=== PATIENT | male | born 1975 | race Caucasian/White ===

== ENCOUNTER 2022-12-14 15:37 | Outpatient (CLI) | payer OTHER, SELFPAY ==
--- NOTE | 2022-12-21 15:42 | CCCE_ITS ---
Comprehensive Care Clinic Note Note: [facility] [address] [place], [place]? [id number] Initial [facility] Visit Information New or Remote Dx of HIV (1-2 hours) Name: Sarabjit Mcarthur? Date of : 1975 ? Primary Care Provider: [facility] Date of Service: 12/14/2022 SUBJECTIVE CC: Referred from express care at [facility] where Sarabjit is establishing primary care HPI: Sarabjit was diagnosed with HIV I 2016 when he was admitted to the hospital with pancreatitis. He does not remember what his CD4 count was but he was told he did not have AIDS. He says he was HIV negative when he was hospitalized for syphilis in 2011. He started on Biktarvy soon after that but didn?t like it because h gained weight. He admits to eating a lot of junk food then and has changed his diet this year resulting in loosing weight. He says he went from w size 38 pant to size 35. His weight was over 200 and he now weighs about 175#. He moved last year from his home town in [place] to [place] where he has extended family. His PCP and ID provider in [place] was no longer able to RX for the Biktarvy he was taking since 2017. He has not had it since earlier this year. Nor has he had the RX for testosterone 200mg IM which he has been taking for a few years and feels his energy and overall sense of wellbeing has declined w/o it. ROS Constitutional: general lethargy started soon after stopped the testosterone replacement, Sleep is OK if he is in s reclined=r due to chronic back pain. Skin: NO current rash, he has a h/O Zoster on the face Head: Prone to sinus HAs and has one now. He went to the [facility] express care yesterday for a ?sinusitis?, was Covid and Flu negative and RX?d doxycycline. Eyes: No visual complaints and he does not wear any correction Ear/Nose/Throat: Sinus congestion, pressure pain x 1 week with some right ear pressure Mouth/Teeth: full upper denture and a partial on the lower Neck: Denies complaint CV: Negative Respiratory: Negative GI: Had GERD but it resolved with weight reduction. : No Symptoms, had GC many years ago and was [place] Musculoskeletal: general muscle weakness since stopped testosterone Endocrine: Low T since had Syphilis in 2011 Lymphatic: Has no noted any enlarged nodes Hematologic: Denies unusual bruising of bleeding Immunologic: Has environmental allergies for which he has had an RX for Flonase and an ?antihistamine inhaler?. Psychiatric: He states he is depressed about his HIV DX. Denies suicidal ideation now but has had some in the past. No HI. Allergies/Sensitivities: No medication allergies but states he gets GI symptoms from any PCN. He has environmental allergies. 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 when he presented to the ER and was admitted for 1 ? weeks in ICU, then 2 more weeks inpatient and had 2 months of IV antibiotics via pic line. - spinal stenosis (which he blames on a traumatic spinal tap when he was inpatient for syphilis Tx. Has chronic back pain. 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 This is when he had the first +HIV test. - Very remote past had GC which was treated but needed a urethral dilatation sometime after that due to scaring. Past Surgical History: urethral dilatation Past Psychiatric History: Has had long standing seasonal depression and states he has been depressed since HIV diagnosis. He did have some suicidal ideations soon after diagnosis and states he has guns. He denies suicidality now. Social History: [place] [facility] and needs a recliner so he can sleep better due to his chronic back pain. He does not have a sexual partner now and has never had a intermediate accountant relationship. Place of : [place]. [place] Gender: M Racial Distribution: C Primary Language: Romanian Secondary Language(s): None Current County, State of Residence: [place], [place] Marital Status: Single Family Size: 1 Pets: 2 Dogs Housing: Staying with a friend Incarceration History: None History: None Highest Grade Completed: 12th ? Able to read? 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 ? Income(s)/Means of Financial Support: Has some savings. Makes about $4000 when he is working ? 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 Other payment source: None ? Coverage Issues: None known Substance Abuse History: ? Tobacco: quit cigarettes long ago ? ETOH: 2 x a week 2 ? 4 twisted teas ? Illicit Drug Use: MJ rarely ? Rx Drug Dependence: None Other Psychosocial Considerations: Thinking of returning to [facility] where he was active on the [employer] department and had friends there. Family History ? Mother: 70 yo HTN, Hyperlipidemia, prediabetes, anxiety/depression ? Father: 72 yo DM, HTN, Prostat CA ? Siblings: 1 sister 7 years younger than him A&w, 1 brother 1 year older A&W ? Children: None ? Grand Parents: PGF T1 DM, MGF ETOH, M Uncle ETOH ? Extended: Immunization History ? Tetanus/TDAP: UTD ? Hepatitis A: states he had ? Hepatitis B: states he had ? Flu Vaccine: 2020 ? Pneumovax 23: states he had ? Prevnar 13: unknown ? Singrix: no ? Menactra: no ? other: Covid initial series and 1 booster Health Maintenance: Needs a PCP visit at [facility] to officially establish care Lipids/Glucose: Will order ID Screenings ? PPD/Quantiferron: PPD negative last year OBJECTIVE Height: 6?3?, Weight: 174, Temp: 99.2. Pulse: 62, Respirations: 14, Blood Pressure: 128/72 General: WDWNL Skin: W/D, clear Head: NCAT Eyes: PERRL 4mm w symmetry, Non-icteric, Non-injected, Disc flat, vessels appear normal Ears/Nose: Mild sinus pressure bilateral maxillary with bogginess, TMs rafa Mouth/Teeth: Dentures w/o lesion below Pharynx: clear, uvula midline Neck: Supple CV/Pulses: RRR, No MCRG, pulses 2/4 Chest Lungs: Clear in all lobes Abdomen: NABS, ND, NT, No OGM Extremities: No edema, clubbing, cyanosis Musculoskeletal: Normal muscle distribution Neuro: Gait strong and steady, no tremor, tics : NE Pelvic: NA Rectal: NE Lymphatic: No adenopathy Psychiatric: - appearance: Well dressed - eye contact: fair - attitude: cooperative - speech: clear, coherent - affect: flat - mood: depressed - memory: intact - self-perception: some deprecation - motor activity: normal - orientation: x4 - attention: intact - thought content: non delusional - perceptions: normal - insight: good ASSESSMENT/PLAN 1.? HIV non AIDS ? RX Biktarvy 50/200/25 mg tab, 1 daily po MD visit scheduled: To be scheduled at one of the next clinics with Dr. Antonio Release of Records: Signed Social Work/Psychiatry referral: Will coordinate with his PCP, Also will refer to [facility], the HIV/AIDS service organization in our area, as well a to the VMAP coordinator for supplemental help with Co pays, etc. to get HIV medications. Lab work ordered (if not done recently) - CBCD - CD4/8 Immunodeficiency Panel - Comprehensive Metabolic Profile with Lipids - HIV RNA PCR Quantitative Provider of Care:? Elinor Curtis, MSN, CLIENT SERVICES SPECIALIST
== END 2022-12-14 15:38 | disposition home or self-care (01) ==
LOC: CCC 12-21 15:39
PROVIDERS: PCP Nurse Practitioner Family; Visit Provider Nurse Practitioner Family
DX: B20 Human immunodeficiency virus [HIV] disease (principal)
CPT/HCPCS: 99204

== ENCOUNTER 2023-02-02 13:29 | Outpatient (CLI) | payer OTHER, SELFPAY ==
[2023-02-02 13:44] LABS: Abs Immature Grans 0.01 10^3/uL (0.0-0.06); Absolute Basophil Count 0.02 10^3/uL (0.0-0.2); Absolute Lymphocyte Count 1.93 10^3/uL (1.2-3.4); Absolute Monocyte Count 0.45 10^3/uL (0.1-0.8); Basophils % 0.5; Eosinophils % 2.4; HCT 40.5 % (40.0-50.0); HGB 13.1 g/dL (13.5-17.5); Immature Grans % 0.2; Lymphocytes % 46.8; MCH 28.5 pg (27.0-33.0); MCHC 32.3 % (32.0-36.0); MCV 88 fL (80-95); MPV 9.2 fL (8.0-11.0); Monocytes % 10.9; Neutrophils % 39.2; Platelet Count 197 10^3/uL (130-400); RDW 14.1 % (11.8-14.1); RDW-SD 45.5 fL; WBC 4.12 10^3/uL (4.4-10.8)
[2023-02-02 13:46] LABS: Absolute Neutrophil Count 1.62 10^3/uL (1.2-6.7)
[2023-02-02 15:52] LABS: Anion Gap 6.8 mmol/L (3-11); BUN 13 mg/dL (7-18); CO2 28.2 mmol/L (21.0-32.0); CREATININE 1.1 mg/dL (0.70-1.30); Calcium 9.2 mg/dL (8.5-10.1); Chloride 101 mmol/L (98-107); Estimated GFR 82.29 (mL/min/1.73m2); Glucose 101 mg/dL (74-106); Sodium 136 mmol/L (136-145)
== END 2023-02-02 13:30 | disposition home or self-care (01) ==
LOC: LBO 02-03 13:29
PROVIDERS: Visit Provider Nurse Practitioner Family
DX: U07.1 COVID-19 (principal)
CPT/HCPCS: 36415; 80048; 85025

== ENCOUNTER 2023-03-13 19:03 | Outpatient (CLI) | payer OTHER, SELFPAY ==
[2023-03-13 10:43] LABS: Abs Immature Grans 0.01 10^3/uL (0.0-0.06); Absolute Basophil Count 0.02 10^3/uL (0.0-0.2); Absolute Eosinophil Count 0.02 10^3/uL (0.0-0.7); Absolute Lymphocyte Count 2.32 10^3/uL (1.2-3.4); Absolute Neutrophil Count 1.74 10^3/uL (1.2-6.7); Basophils % 0.4; Eosinophils % 0.4; HCT 42.5 % (40.0-50.0); HGB 14.2 g/dL (13.5-17.5); Immature Grans % 0.2; Lymphocytes % 51.4; MCH 28.6 pg (27.0-33.0); MCHC 33.4 % (32.0-36.0); MCV 86 fL (80-95); MPV 9.8 fL (8.0-11.0); Monocytes % 8.9; Neutrophils % 38.7; Platelet Count 191 10^3/uL (130-400); RBC 4.96 10^6/uL (4.36-5.78); RDW 13.2 % (11.8-14.1); RDW-SD 41.2 fL; WBC 4.51 10^3/uL (4.4-10.8)
[2023-03-13 10:58] LABS: ALT 29 U/L (16-63); AST 27 U/L (15-37); Albumin 3.5 g/dL (3.4-5.0); Alkaline Phosphatase 68 U/L (46-116); Anion Gap 7.3 mmol/L (3-11); BUN 13 mg/dL (7-18); Bilirubin, Total 0.5 mg/dL (0.2-1.0); CO2 29.7 mmol/L (21.0-32.0); CREATININE 1.1 mg/dL (0.70-1.30); Calcium 8.9 mg/dL (8.5-10.1); Chloride 99 mmol/L (98-107); Estimated GFR 82.29 (mL/min/1.73m2); Glucose 112 mg/dL (74-106); Potassium 4.1 mmol/L (3.5-5.1); Sodium 136 mmol/L (136-145); Total Protein 8.8 g/dL (6.4-8.2)
[2023-03-13 11:00] LABS: Hemoglobin A1C 5.3 % (<5.7)
[2023-03-14 15:24] LABS: 4/8 Ratio 0.11 (>=0.90); Absolute CD3 2512 Cells/uL (840-2669); CD3 83 % (56-84); CD4 8 % (31-64); CD8 74 % (9-39)
[2023-03-16 11:19] LABS: HIV 1 RNA Qualitative Detected copies/mL (Undetected); HIV 1 RNA Quantitative 335000 copies/mL (Undetected)
[2023-03-18 13:49] LABS: Testosterone, Free 72.4 ng/dL (4.26-16.4); Testosterone, Total 1690 ng/dL (240-950)
== END 2023-03-13 19:04 | disposition home or self-care (01) ==
LOC: LBO 19:03
PROVIDERS: PCP Nurse Practitioner Family; Visit Provider Nurse Practitioner Family
DX: B20 Human immunodeficiency virus [HIV] disease (principal); Z79.899 Other long term (current) drug therapy
CPT/HCPCS: 36415; 80053; 84402; 84403; 87536; 83036; 85025; 86359; 86360

== ENCOUNTER 2023-10-09 10:50 | Outpatient (CLI) | payer OTHER, SELFPAY ==
[2023-10-22 16:14] LABS: Testosterone, Free 0.42 ng/dL (4.06-15.6); Testosterone, Total 19 ng/dL (240-950)
== END 2023-10-09 10:51 ==
LOC: LBO 10-24 10:50
PROVIDERS: PCP Nurse Practitioner Family; Visit Provider Nurse Practitioner Family
DX: E29.1 Testicular hypofunction (principal)
CPT/HCPCS: 36415; 84402; 84403

== ENCOUNTER 2024-04-17 17:16 | Outpatient (REF) | payer BC, SELFPAY ==
[2024-04-17 21:11] LABS: HCT 44.4 % (40.0-50.0); HGB 14.9 g/dL (13.5-17.5); MCH 28.2 pg (27.0-33.0); MCHC 33.6 % (32.0-36.0); MCV 84 fL (80-95); MPV 11.3 fL (8.0-11.0); Platelet Count 169 10^3/uL (130-400); RBC 5.28 10^6/uL (4.36-5.78); RDW 12.7 % (11.8-14.1); RDW-SD 38.8 fL
[2024-04-17 21:27] LABS: ALT 43 U/L (16-63); AST 30 U/L (15-37); Albumin 3.9 g/dL (3.4-5.0); Alkaline Phosphatase 79 U/L (46-116); Anion Gap 4.8 mmol/L (3-11); BUN 16 mg/dL (7-18); CO2 30.2 mmol/L (21.0-32.0); CREATININE 1.1 mg/dL (0.70-1.30); Calculated LDL 125 mg/dL (<100); Chloride 101 mmol/L (98-107); Cholesterol 215 mg/dL (<200); Estimated GFR 81.78 (mL/min/1.73m2); Glucose 96 mg/dL (74-106); HDL Cholesterol 33 mg/dL (40-60); Potassium 4.3 mmol/L (3.5-5.1); Sodium 136 mmol/L (136-145); Total Protein 9.1 g/dL (6.4-8.2); Triglyceride 285 mg/dL (<150)
[2024-04-17 21:31] LABS: Calcium 9.4 mg/dL (8.5-10.1)
[2024-04-19 16:29] LABS: 4/8 Ratio 0.14 (>=0.90); Absolute CD3 1903 Cells/uL (840-2669); Absolute CD8 1659 Cells/uL (154-1097); CD3 86 % (56-84); CD4 10 % (31-64); CD8 75 % (9-39)
[2024-04-26 16:02] LABS: Testosterone, Total 604 ng/dL (240-950)
== END 2024-04-17 17:17 | disposition home or self-care (01) ==
LOC: LBN 17:16
PROVIDERS: PCP Nurse Practitioner Family; Visit Provider Nurse Practitioner Family
DX: Z00.00 Encounter for general adult medical examination without abnormal findings (principal); E29.1 Testicular hypofunction; E78.5 Hyperlipidemia, unspecified; B20 Human immunodeficiency virus [HIV] disease
CPT/HCPCS: 80053; 80061; 84402; 84403; 85027; 87536; 86359; 86360